=== PATIENT | female | born 1995 | race African-American/Black ===

== ENCOUNTER 2017-09-17 20:15 | Emergency (ER) | payer OTHER ==
[2017-09-17 20:45] LABS: URINE HCG POC HCG NEGATIVE (Negative)
[2017-09-17 20:46] LABS: BILIRUBIN,URINE NEGATIVE (NEG); CLARITY,URINE CLEAR; COLOR,URINE YELLOW; GLUCOSE,URINE NEGATIVE (NEG); NITRITE,URINE NEGATIVE (NEG); PH,URINE 6.5; PROTEIN,URINE NEGATIVE (NEG-TRACE)
[2017-09-17 20:58] LABS: BACTERIA,URINE MANY /HPF (0-FEW); RBC,URINE >40 /HPF (0-2); SQUAMOUS EPITHELIAL CELL,UR MOD /LPF
[2017-09-17] MEDS: IV NORMAL SALINE 1000ML BAG 1,000 ML IV (21:24)
[2017-09-17 21:29] LABS: AGAP ISTAT 13 mmol/L (6-14); BUN ISTAT 11 mg/dL (8-26); CHLORIDE ISTAT 105 mmol/L (98-110); CREATININE ISTAT 0.7 mg/dL (0.5-1.4); GLUCOSE ISTAT 87 mg/dL (70-99); HEMATOCRIT ISTAT 38 % (36-40); HEMOGLOBIN ISTAT 12.9 g/dL (12-15); ION CA ISTAT 1.23 mmol/L (1.13-1.32); SODIUM ISTAT 140 mmol/L (135-145); TOT CO2 ISTAT 27 mmol/L (23-32)
[2017-09-17] MEDS ORDERED: CONTRAST GIVEN MC (22:00)
[2017-09-17] MEDS ORDERED: IOHEXOL 300 MG/ML 100ML VIAL. IV (22:30)
== END 2017-09-17 22:21 | disposition home or self-care (01) ==
LOC: ER 20:15
DX: R10.11 Right upper quadrant pain (principal); R07.89 Other chest pain
CPT/HCPCS: 74177; 80047; 81001; 81025; 96360; 99285-25; J7030